=== PATIENT | male | born 1970 | race Caucasian/White ===

== ENCOUNTER 2017-06-06 22:24 | Inpatient (IN) | payer BC ==
[~2017-06-06] VITALS: Ht 180.3 cm; Wt 95.3 kg
[2017-06-06 22:29] VITALS: BP 153/91
[2017-06-06] MEDS ORDERED: FLONASE 0.05%50 MCG NASAL (22:34)
[2017-06-06] MEDS ORDERED: EPIPEN0.3 MG/0.1 IM (22:34)
[2017-06-06 22:56] LABS: ABSOLUTE BASOPHILS 0.1 thou/uL (0.0-0.2); ABSOLUTE EOSINOPHILS 0.1 thou/uL (0.0-0.7); ABSOLUTE LYMPHOCYTES 1.8 thou/uL (0.8-5.3); ABSOLUTE MONOCYTES 0.6 thou/uL (0.0-1.2); ABSOLUTE NEUTROPHILS 6.9 thou/uL (1.6-8.1); BASOPHILS 0.5 %; EOSINOPHILS 1.4 %; HEMATOCRIT 42.7 % (42.0-52.0); HEMOGLOBIN 14.8 gm/dL (14.0-18.0); LYMPHOCYTES 18.8 %; MCH 32.2 pg (26.0-34.0); MCHC 34.7 g/dL (28.0-37.0); MCV 92.7 fL (80.0-100.0); MPV 8.6 fl. (7.2-11.1); NUCLEATED RBCS 0 /100WBC; PLATELET COUNT* 247 thou/uL (150-400); POLYS 73.3 %; RDW-CV 12.7 % (10.5-14.5); WBC 9.5 thou/uL (4.0-11.0)
[2017-06-06 23:05] LABS: CALCIUM 8.1 mg/dL (8.5-10.1); CREATININE 1.3 mg/dL (0.6-1.3); POTASSIUM 3.7 mmol/L (3.5-5.1)
[2017-06-06 23:10] LABS: ALBUMIN 3.7 g/dL (3.4-5.0); TOTAL BILIRUBIN 0.5 mg/dL (<0.1-1.0); TOTAL PROTEIN 6.9 g/dL (6.4-8.2)
[2017-06-06 23:58] VITALS: BP 135/85
[2017-06-07] LABS: URINE BILIRUBIN NEGATIVE (Negative); URINE BLOOD 3+ (Negative); URINE CLARITY CLEAR; URINE COLOR DARK YELLOW; URINE GLUCOSE-RANDOM NEGATIVE (Negative); URINE KETONES NEGATIVE (Negative); URINE LEUKOCYTES-REFLEX NEGATIVE (Negative); URINE NITRITE-REFLEX NEGATIVE (Negative); URINE PROTEIN TRACE (Negative); URINE UROBILINOGEN 0.2 E.U./dl (0.2-1.0)
--- NOTE | 2017-06-07 00:05 | NUR ---
ADMITTED TO FLOOR PER CART ACCOMPANIED BY ER STAFF AND WITH BELONGINGS. ORIENTED TO ROOM AND CALL LITE. HISTORY OBTAINED AND ASSESSMENT PERFORMED, WALKED WITH STEADY GAIT FROM CART TO BED. CO RSIDE ABD PAIN RADIATING AROUND TO R FLANK 2/10, DENIES NEED FOR PAIN MED AT THIS TIME. VOIDED IN ER AND DENIES PAIN OR BURNING. INSTRUCTED IN FALL PRECAUTIONS AND NEED TO STRAIN URINE-PT VERBALIZES UNDERSTANDING. REFUSING SCDS, EDUCATION GIVEN. RFA IVF PLACED ON PUMP FOR INFUSION, WILL CONTINUE TO MONITOR.
[2017-06-07 00:07] LABS: BACTERIA-REFLEX 1-9 Few /HPF (None Seen); FINE GRANULAR CASTS 0-3 Few /LPF (None Seen); HYALINE CASTS 0-3 Few /LPF (None Seen); MUCUS 4-6 Moderate strn/LPF (None Seen); SQUAMOUS 0-3 Few /LPF (0-3); URINE RBC >20 Many /HPF (0-2); URINE WBC-REFLEX 0-5 Rare /HPF (0-5)
[2017-06-07 00:08] LABS: AMORPHOUS URATES Moderate /LPF (None Seen)
[2017-06-07 00:20] VITALS: BP 126/63
--- NOTE | 2017-06-07 06:01 | NUR ---
NEW ADMISSION THIS SHIFT, HAS SLEPT FAIRLY WELL SINCE ADMIT. AWAKEND WITH R ABD RADIATING TO FLANK PAIN-MORPHINE GIVEN WITH NO RELIEF, DR NOTIFIED AND DILAUDID ORDERED-GIVEN WITH GOOD RESULT. USING URINAL TO VOID, URINE STRAINED WITH NO STONES SEEN. RFA IVF INFUSING PER PUMP. HAS BEEN NPO SINCE ADMIT, UROLOGY TO CONSULT TODAY. ABLE TO USE CALL LITE AND MAKE NEEDS KNOWN.
[2017-06-07 09:15] VITALS: BP 130/85
[2017-06-07 09:20] LABS: CALCIUM 7.6 mg/dL (8.5-10.1); CREATININE 1.1 mg/dL (0.6-1.3); POTASSIUM 3.9 mmol/L (3.5-5.1)
[2017-06-07 09:22] LABS: ABSOLUTE BASOPHILS 0.1 thou/uL (0.0-0.2); ABSOLUTE EOSINOPHILS 0.1 thou/uL (0.0-0.7); ABSOLUTE LYMPHOCYTES 1.9 thou/uL (0.8-5.3); ABSOLUTE MONOCYTES 0.5 thou/uL (0.0-1.2); ABSOLUTE NEUTROPHILS 3.6 thou/uL (1.6-8.1); BASOPHILS 1.3 %; EOSINOPHILS 1.6 %; HEMATOCRIT 41.4 % (42.0-52.0); LYMPHOCYTES 30.5 %; MCH 31.9 pg (26.0-34.0); MCHC 33.9 g/dL (28.0-37.0); MCV 93.9 fL (80.0-100.0); MONOCYTES 7.7 %; MPV 8.6 fl. (7.2-11.1); NUCLEATED RBCS 0 /100WBC; PLATELET COUNT* 216 thou/uL (150-400); POLYS 58.9 %; RBC 4.41 mil/uL (4.50-6.00); RDW-CV 12.8 % (10.5-14.5); WBC 6.2 thou/uL (4.0-11.0)
--- NOTE | 2017-06-07 10:53 | NUR ---
PATIENT VOIDED AT THIS TIME, STATED HE DID NOT SAVE VOID IN URINAL BECAUSE HE HAD TO HAVE A BM AT THE SAME TIME. PATIENT BLADDER SCANNED PER ORDERS AND ONLY 5MLS NOTED IN BLADDER. WILL CONTINUE TO MONITOR.
[2017-06-07 14:43] VITALS: BP 126/86
--- NOTE | 2017-06-07 15:12 | NUR ---
SW met with pt to complete initial assessment, introduce self, and SW role. Pt alert, oriented, pleasant. Pt at bedside. Pt anticipates to dc home with . Pt independent with ADLs, mobility, and has had no history of HH or SNF and has no DME. Pt expressed no dc needs at this time. SW to continue to follow to assist with safe dc planning.
--- NOTE | 2017-06-07 16:34 | NUR ---
PATIENT GIVEN DILAUDID X 1 THIS SHIFT FOR FLANK PAIN, GOOD RELEIF NOTED. IVF REMAINS INFUSING, SCHED ABX INFUSED. PRN TYLENOL GIVEN FOR HEADACHE THIS EVENING, DR. CRUZ NOTIFIED THAT PATIENT C/O HEADACHE OVER LEFT EYE AND DIZZINESS WHILE IN BED. PATIENT STATED HE THOUGHT IT WAS FROM LOOKING AT HIS CELLPHONE. VITALS WERE STABLE. PATIENT AMBULATED IN HALLWAY WITH . TOLERATING REG DIET. NPO AFTER MIDNIGHT FOR POSSIBLE KIDNEY STONE REMOVAL TOMORROW. URINE STRAINED ORDERED.
[2017-06-08 00:14] VITALS: BP 109/66
[2017-06-08 00:21] VITALS: BP 135/87
[2017-06-08 03:56] LABS: ABSOLUTE EOSINOPHILS 0.2 thou/uL (0.0-0.7); ABSOLUTE MONOCYTES 0.5 thou/uL (0.0-1.2); BASOPHILS 0.6 %; EOSINOPHILS 3.2 %; HEMATOCRIT 40.2 % (42.0-52.0); HEMOGLOBIN 13.5 gm/dL (14.0-18.0); LYMPHOCYTES 34.3 %; MCH 31.4 pg (26.0-34.0); MCHC 33.5 g/dL (28.0-37.0); MCV 93.7 fL (80.0-100.0); MONOCYTES 9.2 %; MPV 8.7 fl. (7.2-11.1); NUCLEATED RBCS 0 /100WBC; PLATELET COUNT* 213 thou/uL (150-400); POLYS 52.7 %; RBC 4.29 mil/uL (4.50-6.00); RDW-CV 12.7 % (10.5-14.5); WBC 5.7 thou/uL (4.0-11.0)
[2017-06-08 04:20] LABS: CALCIUM 7.6 mg/dL (8.5-10.1); POTASSIUM 4.2 mmol/L (3.5-5.1)
--- NOTE | 2017-06-08 05:57 | NUR ---
PT SLEPT FAIRLY WELL OVERNIGHT. HAS DENIED NEED FOR PAIN MED THIS SHIFT. NPO SINCE MNT. UROLOGY TO SEE PT AND DETERMINE NEED FOR INTERVENTION. KUB TO BE DONE THIS MORNING. UP AD KODY IN ROOM, USING URINAL TO VOID-URINE STRAINED WITH NO STONE SEEN. VOIDING WITHOUT DIFFICULTY. RWRIST IVF INFUSING PER PUMP. AM LABS DRAWN. ABLE TO USE CALL LITE AND MAKE NEEDS KNOWN.
[2017-06-08 09:00] VITALS: BP 138/91
[2017-06-08] MEDS ORDERED: CIPRO500 MG PO (11:01)
[2017-06-08] MEDS ORDERED: FLOMAX0.4 MG PO (11:01)
[2017-06-08] MEDS ORDERED: ROXICODONE5 M2 PO (11:01)
[2017-06-08 12:23] VITALS: BP 135/87
--- NOTE | 2017-06-08 15:42 | NUR ---
ASSUMED CARE THIS AM. A/O X 4, DENIES PAIN, UP AD KODY, STEADY GAIT, CONTINENT OF BOWEL/BLADDER. DISCHARGE ORDERS RECEIVED, IV ACCESS REMOVED WITHOUT INCIDENT, DISCHARGE INSTRUCTIONS, FOLLOW UP APPT, PRESCRIPTIONS DISCUSSED WITH AND GIVEN TO PATIENT, DENIES QUESTIONS. PERSONAL EFFECTS GATHERED, ACCOUNTED FOR, IN COMPANY OF PATIENT. CD OF RADIOLOGICAL EXAMS GIVEN TO PATIENT, TO FOLLOW UP WITH UROLOGY TOMORROW. PT AMBULATED IN COMPANY OF STAFF TO MAIN ENTRANCE IN STABLE CONDITION.
== END 2017-06-08 14:20 | disposition home or self-care (01) | DRG 694 ==
LOC: M.ERS 22:24 → M.3W 22:53 → M.TBA-ER 22:53 → M.3W 06-07 00:04
PROVIDERS: Physician Assistant; ADMIT Family Medicine
DX: N20.1 Calculus of ureter (principal); N39.0 Urinary tract infection, site not specified; F17.210 Nicotine dependence, cigarettes, uncomplicated